=== PATIENT | female | born 1960 | race Caucasian/White ===

== ENCOUNTER 2025-03-10 15:18 | Inpatient (IN) | payer MEDICARE ==
[~2025-03-10] VITALS: Ht 162.6 cm; Wt 57.6 kg
[2025-03-10] MEDS ORDERED: OXYC5TAB3 PO (15:32)
[2025-03-10] MEDS ORDERED: SPIR100T5 PO (15:32)
[2025-03-10] MEDS ORDERED: VITA-287 PO (15:32)
[2025-03-10] MEDS ORDERED: GABA-532 PO (15:32)
[2025-03-10] MEDS ORDERED: SUCR1TAB PO (15:32)
[2025-03-10] MEDS ORDERED: THIA100T88 PO (15:32)
[2025-03-10] MEDS ORDERED: PROP20TA7 PO (15:32)
[2025-03-10] MEDS ORDERED: FURO40TA5 PO (15:32)
[2025-03-10 20:30] VITALS: BP 113/80; TEMP 98.2
[2025-03-10] MEDS ORDERED: ACETAMINOPHEN 325 MG TABLET PO PRN (21:00)
[2025-03-10] MEDS: SUCRALFATE 1 G TABLET PO SCH (21:00)
[2025-03-10] MEDS ORDERED: LORAZEPAM 0.5 MG TABLET PO PRN ×2 (21:00)
[2025-03-10] MEDS: BLOOD SUGAR DIAGNOSTIC 1 EACH STRIP VI ONE (21:06)
[2025-03-10] MEDS: MAGNESIUM HYDROXIDE 30 ML LIQUID UDC PO PRN (22:31)
[2025-03-10] MEDS: OXYCODONE HCL 5 MG TABLET PO PRN (22:38)
[2025-03-11] MEDS ORDERED: QUET50TA PO (00:44)
[2025-03-11] MEDS: ZOLPIDEM 5 MG TABLET PO PRN (01:06)
[2025-03-11 08:35] VITALS: BP 101/79; TEMP 98; O2SAT 98
[2025-03-11] MEDS ORDERED: SPIRONOLACTONE 100 MG TABLET PO SCH (09:00)
[2025-03-11] MEDS: NICOTINE 14 MG/24HR PATCH TD SCH (09:09)
[2025-03-11] MEDS: SPIRONOLACTONE 50 MG TABLET PO SCH (09:11)
[2025-03-11] MEDS: FUROSEMIDE 40 MG TABLET PO SCH (09:11)
[2025-03-11] MEDS: GABAPENTIN 100 MG CAPSULE PO SCH (09:11)
[2025-03-11] MEDS: THIAMINE HCL 100 MG TABLET PO SCH (09:12)
[2025-03-11] MEDS: PROPRANOLOL HCL 20 MG TABLET PO SCH (09:12)
[2025-03-11] MEDS: VITAMIN B COMPLEX 1 TABLET PO SCH (09:13)
[2025-03-11] MEDS ORDERED: LORAZEPAM 1 MG TABLET PO PRN (10:15)
[2025-03-11] MEDS ORDERED: FOLI1TAB94 PO (11:42)
[2025-03-11] MEDS ORDERED: HYDR50TA62 PO (11:43)
[2025-03-11] MEDS ORDERED: LISI-782 PO (11:43)
[2025-03-11] MEDS ORDERED: ESOM40CA PO (11:45)
[2025-03-11] MEDS ORDERED: TRAZ-182 PO (11:49)
[2025-03-11 15:17] VITALS: BP 95/67; TEMP 98; O2SAT 98
[2025-03-11 20:00] VITALS: BP 100/73; TEMP 98; O2SAT 96
[2025-03-11] MEDS: DIVALPROEX ER 250 MG TAB.SR.24H PO SCH (20:25)
[2025-03-11] MEDS: QUETIAPINE FUMARATE 25 MG TABLET PO SCH (20:26)
[2025-03-11 20:30] VITALS: BP 110/66; TEMP 97.9; O2SAT 97
[2025-03-12] MEDS: ZOLPIDEM 5 MG TABLET PO PRN (01:04)
[2025-03-12] MEDS: MAG HYDROX/AL HYDROX/SIMETH 30 ML LIQUID UDC PO PRN (03:33)
[2025-03-12] MEDS: ESCITALOPRAM OXALATE 10 MG TABLET PO SCH (08:36)
[2025-03-12] MEDS: ENSURE ENLIVE (VAN) 240 ML LIQUID PO SCH (08:42)
[2025-03-12 08:51] VITALS: BP 124/64; TEMP 98.5; O2SAT 96
[2025-03-12] MEDS: MIRALAX 17 GM POWD.PACK PO SCH (13:43)
[2025-03-12 16:39] VITALS: BP 129/48; TEMP 98; O2SAT 95
[2025-03-12 20:00] VITALS: BP 98/63; TEMP 98.1; O2SAT 98
[2025-03-13 08:04] VITALS: BP 119/58; TEMP 98.5; O2SAT 100
[2025-03-13 16:30] VITALS: BP 90/57; TEMP 98.1; O2SAT 98
[2025-03-13 20:00] VITALS: BP 102/65; TEMP 98.2; O2SAT 100
[2025-03-14] MEDS ORDERED: HYDROXYZINE PAMOATE 25 MG CAPSULE PO PRN (08:00)
[2025-03-14 08:02] VITALS: BP 92/66; TEMP 97.9; O2SAT 98
[2025-03-14 16:09] VITALS: BP 110/71; TEMP 98; O2SAT 99
[2025-03-14 19:40] VITALS: BP 113/76; TEMP 98.2; O2SAT 99
[2025-03-14] MEDS: MELATONIN 3 MG TABLET PO SCH (21:29)
[2025-03-15] MEDS: diphenhydrAMINE 50 MG CAPSULE PO PRN (00:57)
[2025-03-15 07:49] VITALS: BP 156/79; TEMP 98; O2SAT 98
[2025-03-15 15:02] VITALS: BP 98/68; TEMP 98; O2SAT 98
[2025-03-15 19:47] VITALS: BP 117/80; TEMP 98; O2SAT 98
[2025-03-16 08:12] VITALS: BP 99/64; TEMP 98; O2SAT 99
[2025-03-16] MEDS: ESCITALOPRAM OXALATE 10 MG TABLET PO SCH (09:28)
[2025-03-16 15:19] VITALS: BP 122/78; TEMP 98; O2SAT 99
[2025-03-16 20:00] VITALS: BP 90/60; TEMP 98.2; O2SAT 97
[2025-03-16 20:29] VITALS: BP 116/63
[2025-03-17 07:59] VITALS: BP 107/71; TEMP 98; O2SAT 99
[2025-03-17] MEDS: DIVALPROEX ER 250 MG TAB.SR.24H PO SCH (08:49)
[2025-03-17 15:57] VITALS: BP 100/67; TEMP 98; O2SAT 99
[2025-03-17 20:00] VITALS: BP 97/69; TEMP 98.1; O2SAT 99
[2025-03-17 20:10] VITALS: BP 132/72
[2025-03-18 08:23] VITALS: BP 108/63; TEMP 98; O2SAT 98
[2025-03-18 15:21] VITALS: BP 94/65; TEMP 98; O2SAT 98
[2025-03-18 19:49] VITALS: BP 104/74; TEMP 98.1; O2SAT 100
[2025-03-19 08:57] VITALS: BP 110/73; TEMP 98; O2SAT 98
[2025-03-19 16:32] VITALS: BP 118/77; TEMP 98.1; O2SAT 100
[2025-03-19 20:00] VITALS: BP 130/81; TEMP 97.8; O2SAT 100
[2025-03-20 08:42] VITALS: BP 118/61; TEMP 98.5; O2SAT 99
[2025-03-20 16:54] VITALS: BP 99/67; TEMP 97.8; O2SAT 100
[2025-03-20 19:42] VITALS: BP 103/68; TEMP 98; O2SAT 98
[2025-03-21 08:21] VITALS: BP 98/65; TEMP 97.7; O2SAT 98
[2025-03-21 16:26] VITALS: BP 101/65; TEMP 98; O2SAT 98
[2025-03-21 19:54] VITALS: BP 106/64; TEMP 106; O2SAT 96
[2025-03-22 08:43] VITALS: BP 126/81; TEMP 98.3; O2SAT 99
== END 2025-03-22 11:10 | disposition home or self-care (01) | DRG 885 ==
LOC: ER 15:18 → GPS 20:04
PROVIDERS: ADMIT Psychiatry & Neurology Psychiatry; ATTEND Nurse Practitioner Acute Care
DX: F31.5 Bipolar disorder, current episode depressed, severe, with psychotic features (principal); F10.239 Alcohol dependence with withdrawal, unspecified; R45.851 Suicidal ideations; T65.92XD Toxic effect of unspecified substance, intentional self-harm, subsequent encounter; T51.0X2D Toxic effect of ethanol, intentional self-harm, subsequent encounter; T50.912D Poisoning by multiple unspecified drugs, medicaments and biological substances, intentional self-harm, subsequent encounter; Z79.899 Other long term (current) drug therapy; Z88.0 Allergy status to penicillin; F41.9 Anxiety disorder, unspecified; I10 Essential (primary) hypertension; K70.30 Alcoholic cirrhosis of liver without ascites
CPT/HCPCS: 36415; 80164; Q0163